=== PATIENT | male | born 1955 | race Caucasian/White ===

== ENCOUNTER 2016-09-06 19:25 | Emergency (ER) | payer OTHER ==
[~2016-09-06] VITALS: Ht 167.6 cm; Wt 75.0 kg
[2016-09-06 19:49] VITALS: Ht 167.6 cm; Wt 75.0 kg
== END 2016-09-07 01:47 | disposition left against medical advice (07) ==
LOC: E/R 19:25
DX: Z53.21 Procedure and treatment not carried out due to patient leaving prior to being seen by health care provider (principal)